=== PATIENT | female | born 1985 | race Caucasian/White ===

== ENCOUNTER 2017-05-09 17:48 | Emergency (ER) | payer OTHER ==
[~2017-05-09] VITALS: Ht 167.6 cm; Wt 104.3 kg
[2017-05-09 18:02] VITALS: BP 144/96
--- NOTE | 2017-05-09 19:12 | RADIOLOGY REPORT ---
EXAMINATION: XR KNEE, RIGHT CLINICAL INFORMATION: Right knee pain COMPARISON: None TECHNIQUE: Four views of the right knee. FINDINGS: The medial and lateral compartments are maintained. There is mild spurring of the tibial spines. Mild cornering of the distal femur and proximal tibia. A small enthesophyte is present at the insertion of the patellar tendon. No joint effusion. No acute fractures or fixation. IMPRESSION: No acute findings. Mild tricompartmental osteoarthritis.
--- NOTE | 2017-05-09 19:47 | ED UPPER/LOWER EXTREMITY COMPL ---
History of Present Illness General Chief Complaint: Lower Extremity Injury Stated Complaint: R KNEE INJURY Source: patient Exam Limitations: no limitations Vital Signs & Intake/Output Vital Signs & Intake/Output Vital Signs Date Time Temp Pulse Resp B/P B/P Pulse O2 O2 Flow FiO2 Mean Ox Delivery Rate 05/09 1802 97.6 64 18 144/96 97 Room Air Room Air ED Intake and Output 05/10 0000 05/09 1200 Intake Total Output Total Balance Patient 230 lb Weight Weight Reported by Patient Measurement Method Allergies Coded Allergies: No Known Allergies (05/09/17) Triage Note: TRIAGE: 31 Y/O FEMALE PRESENTS C/O RIGHT KNEE PAIN X 2 DAYS AFTER ALTERCATION. ABLE TO AMBULATE WITHOUT DIFFICULTY. Triage Nurses Notes Reviewed? yes Onset: Abrupt Duration: day(s): (2) Timing: remote history Severity: moderate Severity Numbers: 6 Pain/Injury Location: Right: Knee. Method of Injury: fall Modifying Factors: Improves With: immobilization. Worsens With: movement. Associated Symptoms: swelling : No Patient currently breastfeeds: No HPI: Patient is a 31-year-old male with history of right knee pain presenting to the emergency Department chief complaint the chief complaint of right knee pain after trip and fall 2 days ago. Patient reports she has had history of right knee pain in the past. Denies numbness or tingling. She reports that she twisted the right knee when she went down. She also reports positive head straight without LOC. No nausea vomiting or headaches. No visual changes. Denies taking anything at home to help with symptoms. Symptoms worse with examination. (Ely Askew) Reconcile Medications Naproxen (Naprosyn) 500 MG TABLET 1 TAB PO BID PRN pain (Kelly CHAUHAN,Bladimir Luong) Past History Travel History Traveled to [place] past 21 day No Medical History Any Pertinent Medical History? see below for history Neurological: NONE EENT: NONE Cardiovascular: NONE Respiratory: NONE Gastrointestinal: NONE Hepatic: NONE Renal: NONE Musculoskeletal: NONE Psychiatric: NONE Endocrine: NONE Blood Disorders: NONE Cancer(s): NONE PHOTOCOPY OPERATOR/Reproductive: NONE Surgical History Surgical History: non-contributory Psychosocial History What is your primary language Uzbek Tobacco Use: Current Daily Use Daily Tobacco Use Amount/Type: => 5 Cigarettes daily ETOH Use: occasional use Family History Hx Contributory? No (Ely Askew) Review of Systems Review of Systems Constitutional: Reports: no symptoms. Comments Review of systems: See HPI, All other systems negative. Constitutional, no chills fever or weight loss HEENT: No visual changes no sore throat no congestion Cardiovascular: No chest pain ,palpitation Skin, no jaundice no rashes Respiratory: No dyspnea cough sputum or hemoptysis GI: No nausea no vomiting : No dysuria No hematuria Muscle skeletal: no back pain, no neck pain, Neurologic: No numbness, no confusion Hematologic: No bleeding disorders, no blood thinners Immunology: No splenectomy or history of AIDS (Ely Askew) Physical Exam Physical Exam General Appearance: well developed/nourished, no apparent distress, alert, awake , comfortable Comments: Well-developed well-nourished person in no acute distress HEENT: Small amount of ecchymosis noted over the left orbit, nontender to palpation. Pupils equally round and reactive to light and accommodation. Nose is atraumatic. External auditory canal and Tympanic membranes clear. Pharynx normal. No swelling or edema. Neck:, Normal inspection, no C-spine tenderness. Back: Full range of motion Respiratory: No respiratory distress. Extremity: Mildly tender to palpation along the medial lateral aspect of the right patella. Near full range of motion somewhat limited secondary to pain. Full range of motion of right foot, right ankle without difficulty or pain. pain to palpation in the right lower extremity. Pedal pulses are 2+ bilaterally. Negative anterior drawer test of the right lower extremity. Negative posterior drawer test of the right lower extremity. Neuro: Alert oriented x3, motor sensory normal, cranial nerves II through XII grossly intact. Cerebellar testing is unremarkable. Skin: Other than ecchymotic left orbit, No appreciable rash on exposed skin, skin is warm and dry. Psych: Mood and affect is normal, memory and judgment is normal. (Ely Askew) Progress Differential Diagnosis: contusion, dislocation, fracture, sprain, tendon injury Plan of Care: Orders Procedure Date/time Status Durable Medical Equipment 05/09 2001 Active Diagnostic Imaging: Viewed by Me: Radiology Read. Discussed w/RAD: Radiology Read. Radiology Impression: PATIENT: GEORGINA CROSS PRESENT AGE: 31 PATIENT ACCOUNT NO: [id number] : 86 LOCATION: [facility] ORDERING PHYSICIAN: Dylon RODNEY SERVICE DATE: 05/09/17 EXAM TYPE: RAD - XRY-KNEE COMPLETE RIGHT EXAMINATION: XR KNEE, RIGHT CLINICAL INFORMATION: Right knee pain COMPARISON: None TECHNIQUE: Four views of the right knee. FINDINGS: The medial and lateral compartments are maintained. There is mild spurring of the tibial spines. Mild cornering of the distal femur and proximal tibia. A small enthesophyte is present at the insertion of the patellar tendon. No joint effusion. No acute fractures or fixation. IMPRESSION: No acute findings. Mild tricompartmental osteoarthritis. DICTATED BY: Dennise Osborne MD DATE/TIME DICTATED:05/09/171906 MEDIA JOB TITLES:WILEY DATE/TIME TRANSCRIBED:05/09/171906 CONFIDENTIAL, DO NOT COPY WITHOUT APPROPRIATE AUTHORIZATION. <Electronically signed in Other Vendor System> SIGNED BY: Dennise Osborne MD 05/09/171911 (Ely Askew) Departure Departure Time of Disposition: 1999 Disposition: HOME OR SELF CARE Condition: Stable Clinical Impression Primary Impression: Knee sprain Qualifiers: Encounter type: initial encounter Involved ligament of knee: unspecified ligament Laterality: right Qualified Code: S83.91XA - Sprain of unspecified site of right knee, initial encounter Secondary Impressions: Minor head injury Qualifiers: Encounter type: initial encounter Qualified Code: S00.90XA - Unspecified superficial injury of unspecified part of head, initial encounter Referrals: Patient Has No Primary Care Dr (PCP/Family) Beatriz CHAUHAN,Alphonse Luong Additional Instructions: Follow-up with orthopedics if symptoms persist. Rest ice and elevate affected extremity. Take Bactrim as prescribed to help with any pain or swelling. Use knee immobilizer for support. Ice affected areas. Return if he develop any headaches vision changes nausea vomiting worsening symptoms or concerns. Departure Forms: Customer Survey General Discharge Information Prescriptions: Current Visit Scripts Naproxen (Naprosyn) 1 TAB PO BID PRN pain #20 TAB (Ely Askew) PA/[employer] Co-Sign Statement Statement: ED Attending supervision documentation- [] I saw and evaluated the patient. I have also reviewed all the pertinent lab results and diagnostic results. I agree with the findings and the plan of care as documented in the PA's/[employer]'s documentation. [x] I have reviewed the ED Record and agree with the PA's/[employer] documentation. [] Additions or exceptions (if any) to the PAs/[employer]'s note and plan are summarized below: [] (Kelly CHAUHAN,Bladimir Luong) Procedures Splinting Location: right knee Manual Alignment Performed: No Pre-Made Type: knee imobilizer Splint Applied By: splint applied by other (nursing) Pre-Proc Neuro Vasc Exam: normal Post-Proc Neuro Vasc Exam: normal Progress: tolerated procedure well (Yon RODNEY,Ely)
[2017-05-09] MEDS ORDERED: NAPROSYN500 M1 PO (20:04)
== END 2017-05-09 20:28 ==
LOC: ERH 17:48
DX: S83.91XA Sprain of unspecified site of right knee, initial encounter (principal); S09.90XA Unspecified injury of head, initial encounter; W18.09XA Striking against other object with subsequent fall, initial encounter; Y92.9 Unspecified place or not applicable; Y93.9 Activity, unspecified
CPT/HCPCS: 73562-RT